=== PATIENT | male | born 1940 | race Caucasian/White ===

== ENCOUNTER 2018-12-18 15:52 | Inpatient (IN) | payer MEDICARE, OTHER ==
[2018-12-18] MEDS ORDERED: CEFAZOLIN 2 Gram 2 GM/50 ML BAG IVPB ONE (16:35)
--- NOTE | 2018-12-18 16:41 | Emergency Department Record ---
History of Present Illness - General Chief complaint: Extremity Problem Stated complaint: CELLULITIS RT ARM Time Seen by Provider: 12/18/18 16:31 Source: Patient, Family Mode of Arrival: Ambulatory Limitations: No limitations - History of Present Illness Initial comments: 78 yo male presents with erythema and warmth to the right arm for one week. He was seen at a [facility] Wednesday. He was started on oral antibiotics. He is not improved. He does not have pain. Full ROM of the elbow and wrist. He has small scabs or scratches on the arm that could be a source. The swelling and redness or from the armpit to the hand. No other complaints. MD Complaint: Extremity swelling -: Week(s) (1) Location: Right History of Same: No Radiation: Distal Quality: Other (No significant pain) Consistency: Constant Improves with: Nothing Worsens with: Nothing Associated Symptoms: Denies other symptoms - Related Data Home Medications Medication Instructions Recorded Confirmed Last Taken Atorvastatin Calcium [Lipitor] 80 mg PO DAILY 12/18/18 12/18/18 Unknown Cholecalciferol (Vitamin D3) 3,000 unit PO DAILY 12/18/18 12/18/18 Unknown [Vitamin D3] Donepezil HCl [Aricept] 10 mg PO DAILY 12/18/18 12/18/18 Unknown Furosemide [Lasix] 40 mg PO DAILY 12/18/18 12/18/18 Unknown L.acidoph,Paracasei, B.lactis 1 each PO DAILY 12/18/18 12/18/18 Unknown [Probiotic] Lisinopril 2.5 mg PO DAILY 12/18/18 12/18/18 Unknown Metformin HCl 1,000 mg PO DAILY 12/18/18 12/18/18 Unknown Methimazole 5 mg PO DAILY 12/18/18 12/18/18 Unknown Metoprolol Tartrate 12.5 mg PO DAILY 12/18/18 12/18/18 Unknown Rivaroxaban [Xarelto] 15 mg PO DAILY 12/18/18 12/18/18 Unknown Saxagliptin HCl [Onglyza] 5 mg PO DAILY 12/18/18 12/18/18 Unknown Selenium 200 mcg PO DAILY 12/18/18 12/18/18 Unknown Sertraline HCl [Zoloft] 100 mg PO DAILY 12/18/18 12/18/18 Unknown Spironolactone 25 mg PO DAILY 12/18/18 12/18/18 Unknown Tamsulosin HCl [Flomax] 0.4 mg PO DAILY 12/18/18 12/18/18 Unknown Allergies Allergy/AdvReac Type Severity Reaction Status Date / Time Iodinated Contrast Media Allergy PT UNSURE Verified 12/18/18 17:08 OF REACTION Review of Systems Constitutional: Denies: Chills, Fever, Malaise, Weakness Eyes: Denies: Eye discharge ENT: Denies: Congestion Respiratory: Denies: Dyspnea, Wheezes Cardiovascular: Denies: Chest pain, Syncope Endocrine: Denies: Fatigue, Polydipsia, Polyuria Gastrointestinal: Denies: Abdominal pain, Diarrhea, Nausea, Vomiting Genitourinary: Denies: Dysuria, Frequency, Hematuria Musculoskeletal: Reports: Joint swelling. Denies: Arthralgia, Back pain, Myalgia Skin: Reports: As per HPI, Change in color Neurological: Denies: Headache Psychiatric: Denies: Anxiety Hematological/Lymphatic: Denies: Easy bleeding, Easy bruising Physical Exam - General General Appearance: Alert, Oriented x3, Cooperative, No acute distress Limitations: No limitations - Head Head exam: Atraumatic - Eye Eye exam: Normal appearance. negative: Conjunctival injection - ENT ENT exam: Normal exam Ear exam: Normal external inspection Nasal Exam: Normal inspection Mouth exam: Normal external inspection - Neck Neck exam: Normal inspection - Respiratory Respiratory exam: Normal lung sounds bilaterally. negative: Respiratory distress - Cardiovascular Cardiovascular Exam: Regular rate, Normal rhythm, Normal heart sounds - GI/Abdominal GI/Abdominal exam: Soft. negative: Tenderness - Rectal Rectal exam: Deferred - exam: Deferred - Extremities Extremities exam: Full ROM, Joint swelling, Normal capillary refill. negative: Normal inspection, Calf tenderness, Pedal edema Image of Full Body: 1 - diffuse soft swelling of the RUE with warmth and erythema full ROM at the shoulder, elbow, and wrist - Neurological Neurological exam: Alert, Oriented X3 - Skin Skin exam: Erythema Course - Reevaluation(s) Reevaluation #1: 12/18/18 17:18 The CBC was reviewed WBC is 10 12/18/18 17:58 The CMP was reviewed Glucose is 383 12/18/18 17:58 I recommend IV antibiotics with admission for the RUE cellulitis The case was discussed with Tip Willett [employer] She accepts the patient for admission for IV antibiotics for the RUE cellulitis Medical Decision Making - Lab Data Result diagrams: 12/18/18 17:08 12/18/18 17:08 Disposition Disposition: Admit Clinical Impression: Cellulitis Qualifiers: Site of cellulitis: extremity Site of cellulitis of extremity: upper extremity Laterality: right Qualified Code(s): L03.113 - Cellulitis of right upper limb Disposition: Still a Patient at [facility] Decision to Admit: Admit from ER Decision to Admit Date: 12/18/18 Decision to Admit Time: 17:57 Condition: (1) Good Time of Disposition: 17:57 Quality - Quality Measures Quality Measures: N/A - Blood Pressure Screening Does Patient Have Any of the Following: Active Dx of HTN Blood Pressure Classification: Pre-Hypertensive BP Reading Systolic Measurement: 130 Diastolic Measurement: 74 Screening for High Blood Pressure: Patient Exclusion, Hx of HTN [[id number]]
[2018-12-18] MEDS ORDERED: VANCOMYCIN 1GM/200ML PREMIX 1 GM/200 ML PIGGYBACK IVPB SCH ×2 (16:45→18:42)
[2018-12-18 17:15] LABS: ABSOLUTE NEUTROPHIL COUNT 8.25; BASO % 0.4 % (0-6); EOS % 1.1 % (0-6); GRAN % 78.8 % (47-80); HEMATOCRIT 45.1 % (42.0-52.0); LYMPH % 11.8 % (16-45); MEAN CELL VOLUME 86.2 fl (81-97); MEAN CORPUSCULAR HEMOGLOBIN 28.7 pg (27-33); MEAN CORPUSCULAR HGB CONC 33.3 g/dl (32-36); MONO % 7.9 % (0-9); PLATELET COUNT 394 K/uL (130-400); RED BLOOD COUNT 5.23 M/uL (4.40-5.70); RED CELL DISTRIBUTION WIDTH 15.5 % (11.5-14.5); WHITE BLOOD COUNT W/O DIFF 10.5 K/uL (4.2-12.2)
[2018-12-18 17:30] LABS: BLOOD UREA NITROGEN 7 mg/dL (8-23); CREATININE 0.7 mg/dL (0.7-1.2); EST GLOMERULAR FILTRATION RATE > 60 mL/min
[2018-12-18 17:31] LABS: TOTAL PROTEIN 6.2 g/dL (6.6-8.7)
[2018-12-18 17:33] LABS: GLUCOSE,RANDOM 383 mg/dL (74-109)
[2018-12-18 17:35] LABS: ALT/SGPT 12 U/L (<41); AST/SGOT 13 U/L (10.0-50.0)
[2018-12-18 17:36] LABS: ALBUMIN 3.1 g/dL (4.0-5.0); ALKALINE PHOSPHATASE 110 U/L (40-129)
[2018-12-18] MEDS ORDERED: CEFAZOLIN 1 Gram 1 GM/50 ML BAG IVPB SCH (18:42)
[2018-12-18] MEDS ORDERED: ACETAMINOPHEN 325 MG TAB PO PRN (18:42)
[2018-12-18] MEDS: CEFAZOLIN 1 Gram 1 GM/50 ML BAG IVPB SCH (21:46)
[2018-12-19] MEDS: CEFAZOLIN 1 Gram 1 GM/50 ML BAG IVPB SCH ×3 (06:07→21:11)
[2018-12-19] MEDS ORDERED: SAXAGLIPTIN HCL 5 MG PO SCH (10:00)
[2018-12-19] MEDS ORDERED: METHIMAZOLE 5 MG PO SCH (10:00)
[2018-12-19] MEDS: FUROSEMIDE 40 MG TABLET PO SCH (10:13)
[2018-12-19] MEDS: SERTRALINE HCL 50 MG TABLET PO SCH (10:13)
[2018-12-19] MEDS: METOPROLOL TART 25 MG TABLET PO SCH (10:13)
[2018-12-19] MEDS: LISINOPRIL 5 MG TABLET PO SCH (10:13)
[2018-12-19] MEDS: RIVAROXABAN 15 MG TABLET PO SCH (10:13)
[2018-12-19] MEDS: DONEPEZIL HCL 5 MG TABLET PO SCH (10:14)
[2018-12-19] MEDS: ATORVASTATIN 20 MG TABLET PO SCH (10:14)
[2018-12-19] MEDS: METFORMIN 500 MG TABLET PO SCH (10:14)
[2018-12-19] MEDS: TAMSULOSIN HCL 0.4 MG CAP.ER.24H PO SCH (10:14)
--- NOTE | 2018-12-19 10:14 | History & Physical ---
History of Present Illness - Date of Service Date of Service for History & Physical: 12/19/18 - History of Present Illness Admitting Diagnosis: cellulitis History of Present Illness: Edmund Andre is a 78 y.o M who was brought in to the [facility] ED on 12/18/18 by his family d/t erythema warmth to the right arm x 1 week. He was seen in a [facility] on Wednesday and was started on Oral antibiotics. Family reports he has not shown any improvement. Erythema and swelling from armpit to the hand with small scabbed areas to the arm. Pt is a poor historian. Based on medication list, it appears that pt has HTN, Dementia, DM II and urine retention. He follows with a [place] physician for primary care. ED Course -Vitals: T 98.5, HR 77, BP 160/74, RR 16, SPO2 95% RA -WBC 10.5, Na 133, K+ 4. 8, Creatinine 0.7, eGFR >60, Glucose 383 -Vanco 1gm IV x 1 in ED, Cefazolin 1gm IV x. 8 hours started 12/19/18 0930 Vitals: T 98.1, HR 91, BP 134/68, RR 16, SP02 94% on RA Pt is lying in bed. He is alert and oriented to himself and seems disinterested in answering questions. He stated that he had been in the hospital for 4 days already and wasn't sure how long his arm had been red and swollen. At one point, he had to look at his arm to even recognize that it was red and swollen. He reported that he lives alone. Admited to smoking 1 pk/day for 60 years. However family reported that he smokes 2-3 packs/day. Stated that he has been taking his meds as prescribed except he refuses insulin. Staff reported that he has eaten everything that has been put in front of him and asks for more after he is done. Case management reported that she met with his family and that he has had some amount of neuropsychological testing done within the past year but couldn't c omplete it d/t his refusal. Family reported that his dementia seems to be worsening. Travel Screening - Travel/Exposure Within Last 30 Days Have you traveled within the last 30 days?: No - Travel/Exposure Within Last Year Have you traveled outside the [place] in the last year?: No - Additonal Travel Details Have you been exposed to anyone with a communicable illness?: No - Travel Symptoms Symptom Screening: None Review of Systems Reviewed: No additional complaints except as noted below Constitutional: Denies: Chills, Fever, Malaise, Weakness Eyes: Denies: Eye discharge Endocrine: Denies: Polydipsia, Polyuria Gastrointestinal: Denies: Abdominal pain, Diarrhea, Nausea, Vomiting Musculoskeletal: Denies: Arthralgia, Back pain, Myalgia Skin: Reports: As per HPI, Change in color Neurological: Denies: Headache Psychiatric: Denies: Anxiety Past Medical History - SOCIAL HISTORY Smoking Status: Current every day smoker Alcohol Use: None Drug Use: None - RESPIRATORY Hx Respiratory Disorders: No - CARDIOVASCULAR Hx Cardio Disorders: Yes Hx Heart Attack: Yes (2015) - NEURO Hx Neuro Disorders: Yes Hx Dementia: Yes - GI Hx GI Disorders: No - Hx Genitourinary Disorders: Yes Hx Prostate Problems: Yes - ENDOCRINE Hx Endocrine Disorders: Yes Hx Diabetes: Yes - MUSCULOSKELETAL Hx Musculoskeletal Disorders: Yes - PSYCH Hx Psych Problems: Yes Hx Anxiety: Yes Hx Depression: Yes - HEMATOLOGY/ONCOLOGY Hx Hematology/Oncology Disorders: No Family Medical History Any Significant Family History?: Yes Hx Anxiety: Brother/Sister Hx Dementia: Mother Hx Diabetes: Father Hx Resp Disorders: Father, Mother H&P Meds/Allergies - Allergies Allergies: Allergies Allergy/AdvReac Type Severity Reaction Status Date / Time Iodinated Contrast Media Allergy PT UNSURE Verified 12/18/18 17:08 OF REACTION - Home Medications Home Medications Medication Instructions Recorded Confirmed Last Taken Atorvastatin Calcium [Lipitor] 80 mg PO DAILY 12/18/18 12/18/18 Unknown Cholecalciferol (Vitamin D3) 3,000 unit PO DAILY 12/18/18 12/18/18 Unknown [Vitamin D3] Donepezil HCl [Aricept] 10 mg PO DAILY 12/18/18 12/18/18 Unknown Furosemide [Lasix] 40 mg PO DAILY 12/18/18 12/18/18 Unknown L.acidoph,Paracasei, B.lactis 1 each PO DAILY 12/18/18 12/18/18 Unknown [Probiotic] Lisinopril 2.5 mg PO DAILY 12/18/18 12/18/18 Unknown Metformin HCl 1,000 mg PO DAILY 12/18/18 12/18/18 Unknown Methimazole 5 mg PO DAILY 12/18/18 12/18/18 Unknown Metoprolol Tartrate 12.5 mg PO DAILY 12/18/18 12/18/18 Unknown Rivaroxaban [Xarelto] 15 mg PO DAILY 12/18/18 12/18/18 Unknown Saxagliptin HCl [Onglyza] 5 mg PO DAILY 12/18/18 12/18/18 Unknown Selenium 200 mcg PO DAILY 12/18/18 12/18/18 Unknown Sertraline HCl [Zoloft] 100 mg PO DAILY 12/18/18 12/18/18 Unknown Spironolactone 25 mg PO DAILY 12/18/18 12/18/18 Unknown Tamsulosin HCl [Flomax] 0.4 mg PO DAILY 12/18/18 12/18/18 Unknown - Active Medications Active Medications: Current Medications Acetaminophen (Tylenol 325mg) 650 mg PO Q6H PRN PRN Reason: PAIN - MILD(1-4)/FEVER Atorvastatin Calcium (Lipitor) 80 mg PO DAILY [facility] Donepezil HCl (Aricept) 10 mg PO DAILY [facility] Furosemide (Lasix) 40 mg PO DAILY [facility] Cefazolin Sodium (Kefzol) 1 gm in 50 mls @ 100 mls/hr IVPB Q8HR JULIA Stop: 12/23/18 18:43 Last Infusion: 12/19/18 06:53 Dose: Infused Documented by: Lisinopril (Zestril) 2.5 mg PO DAILY [facility] Metformin HCl (Glucophage Ir) 1,000 mg PO DAILY [facility] Metoprolol Tartrate (Lopressor) 12.5 mg PO DAILY [facility] Non-Formulary Medication (Methimazole [Methimazole]) 5 mg PO DAILY [facility] Non-Formulary Medication (Saxagliptin Hcl [Onglyza]) 5 mg PO DAILY [facility] Rivaroxaban (Xarelto) 15 mg PO DAILY JULIA Sertraline HCl (Zoloft) 100 mg PO DAILY JULIA Spironolactone (Aldactone) 25 mg PO DAILY [facility] Tamsulosin HCl (Flomax) 0.4 mg PO DAILY [facility] Physical Exam - Vital Signs Vital Signs: Vital Signs - Last 24 Hrs Temp Pulse Pulse Resp BP BP Pulse Ox 12/19/18 08:30 98.1 F 91 H 16 134/68 94 L 12/19/18 07:57 70 12/18/18 23:24 97.9 F 87 18 159/80 97 12/18/18 21:00 70 16 12/18/18 18:22 97.7 F 77 16 160/74 98 12/18/18 18:21 98.5 F 74 16 130/74 95 12/18/18 16:36 98.5 F 74 16 130/74 95 - General General Appearance: Alert, No acute distress, Other (unkempt) Limitations: No limitations - Head Head exam: Atraumatic - Eye Eye exam: Normal appearance. negative: Conjunctival injection - ENT ENT exam: Normal exam Ear exam: Normal external inspection Nasal Exam: Normal inspection Mouth exam: Normal external inspection - Neck Neck exam: Normal inspection - Respiratory Respiratory exam: Decreased breath sounds. negative: Respiratory distress - Cardiovascular Cardiovascular Exam: Regular rate, Normal rhythm, Normal heart sounds - GI/Abdominal GI/Abdominal exam: Soft. negative: Tenderness - Rectal Rectal exam: Deferred - exam: Deferred - Extremities Extremities exam: Normal capillary refill. negative: Normal inspection, Calf tenderness, Pedal edema - Neurological Neurological exam: Alert, Oriented X3 - Psychiatric Psychiatric exam: Agitated - Skin Skin exam: Erythema (Erythema from shoulder to finger tip on right arm, swelling, scabbed areas to arm), Other Results - Labs Result Diagrams: 12/18/18 17:08 12/19/18 17:15 Labs Last 24 Hours: Laboratory Results - last 24 hr 12/18/18 12/18/18 17:08 17:08 WBC 10.5 RBC 5.23 Hgb 15.0 Hct 45.1 MCV 86.2 MCH 28.7 MCHC 33.3 RDW 15.5 H Plt Count 394 MPV 9.0 Gran % 78.8 Lymphocytes % 11.8 L Monocytes % 7.9 Eosinophils % 1.1 Basophils % 0.4 Absolute Neutrophils 8.25 Sodium 133 L Potassium 4.8 H Chloride 98 Carbon Dioxide 26.0 Anion Gap 9.0 BUN 7 L Creatinine 0.7 Estimated GFR > 60 Random Glucose 383 H Calcium 8.9 Total Bilirubin 0.70 AST 13 ALT 12 Alkaline Phosphatase 110 Total Protein 6.2 L Albumin 3.1 L Globulin 3.1 Albumin/Globulin Ratio 1.0 L VTE H&P Assessment - Risk for VTE Risk for VTE: Yes Risk Level: High Risk Assessment Date: 12/19/18 Risk Assessment Time: 10:00 VTE Orders Placed or Will Be Placed: Yes Plan - Inpatient Certification Inpatient Certification: Admit to inpatient care: Based on my medical assessment, after consideration of patient's risk factors (age, co-morbidities and patient presenting symptoms and acuity), I expect that this patient will remain in the hospital greater than or equal to two midnights and that the services needed warrant inpatient care because: Patient Risk Factors: [Age, co-morbidities] Estimated length of stay: [48-72 hours] The patient may reasonably be expected to be discharged or transferred to a hospital within 96 hours after admission to [facility]. Services needed: [IV Therapy, PT/OT] Post hospital care (if known): [home with [facility]] I certify that my determination is in accordance with my understanding of Medicare requirements for reasonable and necessary inpatient services. 12/19/18 22:08 - Detailed Diagnosis and Plan (1) Diabetes mellitus type II, uncontrolled Current Visit: Yes Status: Acute Base Code: E11.65 - TYPE 2 DIABETES MELLITUS WITH HYPERGLYCEMIA Comment: 12/19/18 -Blood Glucose 383 in ED -Refuses to give himself insulin at home -Continue Metformin 1000mg PO BID and Onglyza 5mg po daily -Sliding Scale insulin - moderate scale ordered (2) Cellulitis Current Visit: Yes Status: Acute Qualifiers: Site of cellulitis: extremity Site of cellulitis of extremity: upper extremity Laterality: right Qualified Code(s): L03.113 - Cellulitis of right upper limb Base Code: L03.90 - CELLULITIS, UNSPECIFIED Comment: 12/19/18 -RUE swelling and erythema from shoulder to fingers, scabbed areas noted which could be source -Vanco 1gm IV x 1 in the ED -Continue Vanco IV, pharmacy to dose -Cefazolin 1gm IV q. 8 hours -Venous Dopplar of RUE ordered to r/o DVT (3) Dementia Current Visit: Yes Status: Acute Base Code: F03.90 - UNSPECIFIED DEMENTIA WITHOUT BEHAVIORAL DISTURBANCE Comment: 12/19/18 -Takes Aricept 10mg daily -Currently A&Ox1 but difficult to assess as pt does not participate well with questioning -Case Management consulted and working with family on social issues (4) DVT prophylaxis Current Visit: Yes Status: Acute Base Code: Z29.9 - ENCOUNTER FOR PROPHYLACTIC MEASURES, UNSPECIFIED Comment: 12/19/18 -Continue Xarelto 15mg daily (home dose) (5) Full code status Current Visit: Yes Status: Acute Base Code: Z78.9 - OTHER SPECIFIED HEALTH STATUS Comment: 12/19/18 -Full code this admission
[2018-12-19] MEDS: SPIRONOLACTONE 25 MG TAB PO SCH (10:17)
[2018-12-19] MEDS ORDERED: VANCOMYCIN 1GM/200ML PREMIX 1 GM/200 ML PIGGYBACK IVPB SCH (10:30)
[2018-12-19] MEDS: VANCOMYCIN 1.5GM/300ML PREMIX 1.5 GM/300 ML PIGGYBACK IVPB SCH ×2 (10:35→22:17)
[2018-12-19] MEDS ORDERED: LORAZEPAM 2 MG/ML VIAL IV PRN (10:49)
[2018-12-19] MEDS: NOVOLOG FLEXPEN (INSULIN ASPART) 100 UNITS/ML SQ SCH ×2 (13:28→18:17)
[2018-12-19] MEDS: NICOTINE 21 MG/24 HOUR PATCH TD SCH (17:35)
[2018-12-19] MEDS ORDERED: NOVOLOG FLEXPEN (INSULIN ASPART) 100 UNITS/ML SQ ONE (19:30)
[2018-12-19] MEDS: LORAZEPAM 2 MG/ML VIAL IV PRN (21:07)
[2018-12-20] MEDS: CEFAZOLIN 1 Gram 1 GM/50 ML BAG IVPB SCH ×3 (05:35→21:10)
--- NOTE | 2018-12-20 05:55 | US VENOUS DOPPLER REPORT ---
EXAM: ULTRASOUND VENOUS DOPPLER UPPER EXT RT HISTORY: RIGHT UPPER EXTREMITY EDEMA. TECHNIQUE: Price-scale, color Doppler, and duplex Doppler examination of the deep venous structures of the right upper extremity performed including the right internal jugular vein, subclavian vein down to the forearm veins though evaluation of the ulnar aspect of the forearm could not be performed due to patient compliance. COMPARISON: None. FINDINGS: The right internal jugular vein is anechoic and completely compressible. Normal venous waveform is identified. The right subclavian, axillary, brachial, cephalic, basilic, and antecubital veins are anechoic and compressible throughout. Normal venous waveforms are identified. The radial veins are visualized and appear patent. Again, evaluation of the ulnar veins was not performed due to patient compliance. IMPRESSION: NO EVIDENCE OF DEEP VENOUS THROMBOSIS WITHIN THE RIGHT UPPER EXTREMITY THOUGH EVALUATION OF THE ULNAR VEINS WAS NOT PERFORMED DUE TO PATIENT COMPLIANCE. JOB NUMBER: [id number] MTDD
[2018-12-20 06:42] LABS: ABSOLUTE NEUTROPHIL COUNT 5.57; BASO % 0.4 % (0-6); GRAN % 67.5 % (47-80); HEMATOCRIT 35.2 % (42.0-52.0); HEMOGLOBIN 11.7 gm/dl (14.0-18.0); LYMPH % 22.3 % (16-45); MEAN CELL VOLUME 86.9 fl (81-97); MEAN CORPUSCULAR HGB CONC 33.2 g/dl (32-36); MEAN PLATELET VOLUME 8.9 fl (7.4-10.4); MONO % 6.8 % (0-9); PLATELET COUNT 357 K/uL (130-400); RED BLOOD COUNT 4.05 M/uL (4.40-5.70); WHITE BLOOD COUNT W/O DIFF 8.3 K/uL (4.2-12.2)
[2018-12-20 06:54] LABS: MEAN CORPUSCULAR HEMOGLOBIN 28.8 pg (27-33)
[2018-12-20 06:57] LABS: ALB/GLOB RATIO 1.2 (1.1-1.8); ALBUMIN 2.5 g/dL (4.0-5.0); ALKALINE PHOSPHATASE 79 U/L (40-129); ALT/SGPT 6 U/L (<41); AST/SGOT 10 U/L (10.0-50.0); BLOOD UREA NITROGEN 9 mg/dL (8-23); CREATININE 0.8 mg/dL (0.7-1.2); EST GLOMERULAR FILTRATION RATE > 60 mL/min; GLUCOSE,RANDOM 207 mg/dL (74-109); TOTAL PROTEIN 4.6 g/dL (6.6-8.7)
[2018-12-20] MEDS: NOVOLOG FLEXPEN (INSULIN ASPART) 100 UNITS/ML SQ SCH ×5 (09:07→18:20)
[2018-12-20] MEDS: DONEPEZIL HCL 5 MG TABLET PO SCH (10:35)
[2018-12-20] MEDS: METFORMIN 500 MG TABLET PO SCH (10:35)
[2018-12-20] MEDS: METOPROLOL TART 25 MG TABLET PO SCH (10:36)
[2018-12-20] MEDS: SERTRALINE HCL 50 MG TABLET PO SCH (10:36)
[2018-12-20] MEDS: NICOTINE 21 MG/24 HOUR PATCH TD SCH (10:36)
[2018-12-20] MEDS: LISINOPRIL 5 MG TABLET PO SCH (10:37)
[2018-12-20] MEDS: SPIRONOLACTONE 25 MG TAB PO SCH (10:37)
[2018-12-20] MEDS: RIVAROXABAN 15 MG TABLET PO SCH (10:37)
[2018-12-20] MEDS: FUROSEMIDE 40 MG TABLET PO SCH (10:37)
[2018-12-20] MEDS: ATORVASTATIN 20 MG TABLET PO SCH (10:38)
[2018-12-20] MEDS: TAMSULOSIN HCL 0.4 MG CAP.ER.24H PO SCH (10:38)
[2018-12-20] MEDS: VANCOMYCIN 1.5GM/300ML PREMIX 1.5 GM/300 ML PIGGYBACK IVPB SCH (10:39)
[2018-12-20] MEDS: LORAZEPAM 2 MG/ML VIAL IV PRN (17:14)
[2018-12-20] MEDS ORDERED: LEVEMIR FLEXTOUCH 100 UNIT/ML INSULIN PEN SQ ONE (18:13)
[2018-12-20] MEDS ORDERED: LORAZEPAM 2 MG/ML VIAL IV PRN (18:26)
[2018-12-20] MEDS ORDERED: LEVEMIR FLEXTOUCH 100 UNIT/ML INSULIN PEN SQ SCH (22:00)
[2018-12-20] MEDS: THIAMINE MONONITRATE 100 MG TABLET PO SCH (23:37)
[2018-12-21] MEDS ORDERED: NOVOLOG FLEXPEN (INSULIN ASPART) 100 UNITS/ML SQ ONE (00:01)
[2018-12-21] MEDS: VANCOMYCIN 1.5GM/300ML PREMIX 1.5 GM/300 ML PIGGYBACK IVPB SCH ×3 (00:15→22:52)
[2018-12-21] MEDS: CEFAZOLIN 1 Gram 1 GM/50 ML BAG IVPB SCH ×3 (05:08→21:56)
[2018-12-21] MEDS: NOVOLOG FLEXPEN (INSULIN ASPART) 100 UNITS/ML SQ SCH ×3 (07:44→17:17)
[2018-12-21] MEDS: METFORMIN 500 MG TABLET PO SCH (09:17)
[2018-12-21] MEDS: SERTRALINE HCL 50 MG TABLET PO SCH (09:17)
[2018-12-21] MEDS: TAMSULOSIN HCL 0.4 MG CAP.ER.24H PO SCH (09:17)
[2018-12-21] MEDS: THIAMINE MONONITRATE 100 MG TABLET PO SCH (09:17)
[2018-12-21] MEDS: LISINOPRIL 5 MG TABLET PO SCH (09:18)
[2018-12-21] MEDS: RIVAROXABAN 15 MG TABLET PO SCH (09:18)
[2018-12-21] MEDS: DONEPEZIL HCL 5 MG TABLET PO SCH (09:18)
[2018-12-21] MEDS: ATORVASTATIN 20 MG TABLET PO SCH (09:19)
[2018-12-21] MEDS: METOPROLOL TART 25 MG TABLET PO SCH (09:19)
[2018-12-21] MEDS: FUROSEMIDE 40 MG TABLET PO SCH (09:19)
[2018-12-21] MEDS: NICOTINE 21 MG/24 HOUR PATCH TD SCH (09:20)
[2018-12-21] MEDS: SPIRONOLACTONE 25 MG TAB PO SCH (09:23)
[2018-12-21] MEDS: LEVEMIR FLEXTOUCH 100 UNIT/ML INSULIN PEN SQ SCH ×2 (09:24→21:57)
--- NOTE | 2018-12-21 13:41 | Rehab Evaluation ---
Patient Information - Patient Information Diagnosis: cellulitis Ordered Treatment: PT Evaluate and Treat Status: Initial Evaluation Past Medical/Surgical Hx: PAST MEDICAL/SURGICAL HISTORY Past Surgical History back surgery left rotator cuff gallbladder appy PMH - Respiratory Hx Respiratory Disorders No PMH - Cardiovascular Hx Cardiovascular Disorders Yes Hx Heart Attack Yes: 2016 PMH - Neuro Hx Neurological Disorders Yes Hx Dementia Yes PMH - GI Hx Gastrointestinal Disorders No PMH - Hx Genitourinary Disorders Yes Hx Prostate Problems Yes PMH - Endocrine Hx Endocrine Disorders Yes Hx Diabetes Yes PMH - Musculoskeletal Hx Musculoskeletal Disorders Yes PMH - Psych Hx Psychiatric Problems Yes Hx Anxiety Yes Hx Depression Yes PMH - Hematology/Oncology Hx Hematology/Oncology No Disorders Premorbid Status: Detail (The patient refused to relate history/living situation however patient's son and his were present and presented premorbid status and social history. According to family: The patient ambulated with a 3 wheeled walker and used a standard cane when ambulating into bathroom due to small doorway of bathroom that did not accomodate a walker. The patient had someone present daily either an aide(3 hours, 3 days a week) or his daughter. The patiemt was independent with ADL's per son's report.) Social History: Detail (Per son's report the patient lives in a one story house with a ramp at one enterance and 3 steps at the other enterance. The bathroom is equipped with: a tub/shower combination,hand held shower, two tub chairs one inside the tub and the other outside the tub, a toilet with a riser seat. The patient has a three wheeled walker and cane.) Precautions: [place], Fall - Time With Patient Total Time Spent With Patient (Min): 20 Treatment Procedures: Detail (Initial evaluation.) Subjective Information - Subjective Information Per Patient (The patient was minimally co-operative with eval, perserverating on getting out of the hospital. The patient mocked and swore at PT and OT several times.) Objective Data - Mental Status Patient Orientation: Person (The patient knew his birthday and place. The patient followed simple commands.) - ROM Within normal limits (LE AROM was WNL) - Strength/Tone Other (LE strength testing was not completed secondary to lack of cooperation however was functional (pt. was able to acheive sit to stand and ambulate).) - Bed Mobility Independent (Not formally assessed however independent per nursing staff.) - Transfers Independent (Sit to and from stand transfer was independent.) - Balance Balance Sitting: Good Balance Standing: Fair (The patient required support of 3 wheeled walker for ambulation.) - Gait Detail (The patient ambulated with 3 wheeled walker independently/assistance to handle IV only 45 feet x 1. The patient's gait pattern was characterized by increased trunk and neck flexion and walker placed too far ahead at times.) Therapy Assessment - Therapy Assessment Detail (The patient was independent with transfers and ambulation and exhibits functional strength to complete mobility. Patient was uncooperative and performed minimally for evaluation. The patient is not a rehab candidate at this time due to independence with mobility . Also feel the patient would not participate in a Rehab setting.) Problem List - Problem List Physical Therapy Problem List: Detail (1)Cognitive status, agitation, noncooperative.) Goals - Goals Physical Therapy Goals: No PT goals are identified at this time. Pt. is independent with mobility. Plan - Plan Physical Therapy Plan: No ongoing PT is recommended at this time.
--- NOTE | 2018-12-21 14:33 | Rehab Evaluation ---
Patient Information - Patient Information Diagnosis: cellulitis Ordered Treatment: OT Evaluate and Treat Status: Initial Evaluation Surgery: No Past Med/Harris Hx Detail: Detail (Dementia, HTN, RUE Doppler: negative acute for DVT however ulnar veins NT d/t Pt non-compliance.) Past Medical/Surgical Hx: PAST MEDICAL/SURGICAL HISTORY Past Surgical History back surgery left rotator cuff gallbladder appy PMH - Respiratory Hx Respiratory Disorders No PMH - Cardiovascular Hx Cardiovascular Disorders Yes Hx Heart Attack Yes: 2015 PMH - Neuro Hx Neurological Disorders Yes Hx Dementia Yes PMH - GI Hx Gastrointestinal Disorders No PMH - Hx Genitourinary Disorders Yes Hx Prostate Problems Yes PMH - Endocrine Hx Endocrine Disorders Yes Hx Diabetes Yes PMH - Musculoskeletal Hx Musculoskeletal Disorders Yes PMH - Psych Hx Psychiatric Problems Yes Hx Anxiety Yes Hx Depression Yes PMH - Hematology/Oncology Hx Hematology/Oncology No Disorders Premorbid Status: Detail (The patient refused to relate history/living situation however patient's son and [id number] were present and relayed premorbid status and social history. According to family: The patient ambulated with a 3 wheeled walker and used a standard cane when ambulating into bathroom due to small doorway of bathroom that did not accomodate a walker. The patient had someone present daily, either an aide (3 days a week), his sister, or his daughter. The son reports he often went several days in the same clothes. The patient was independent with all ADL's per son report.) Social History: Detail (Per son's report, the patient lives in a one story house with a ramp at one entrance and 3 steps at the other entrance. The bathroom is equipped with a tub/shower combination, hand-held shower, two tub chairs - one inside the tub and the other outside the tub, and a highly elevated toilet seat. The patient has a three wheeled walker and cane.) Precautions: Beryl, Fall - Time With Patient Total Time Spent With Patient (Min): 25 (1 eval) Treatment Procedures: Detail (1 OT eval: low complexity) Subjective Information - Subjective Information Per Patient (Ok to see per RN Artem, Pt uncooperative and unmotivated throughout Tx, making derogatory remarks about therapists, family, and POC.) Objective Data - Pain Pain Present: No - Mental Status Patient Orientation: Person (Pt reports his full name and birthday, however declines any further information.) - Visual Perception Appears within normal limits for therapeutic activities - ROM Not within normal limits (LUE WNL; R UE complicated rotator cuff repair with residual deficits shld abduction and flexion ~80*, otherwise WNL.) - Strength/Tone Other (MMT not tested d/t Pt non-compliance. Entire R UE notably red and swollen.) - Coordination Appears within normal limits for therapeutic activities - Transfers Independent (Sit to/from stand to 3WW) - Balance Balance Sitting: Good Balance Standing: Fair (Fair-, with walker support, no safety concerns.) - Sensation Intact (NT d/t non-compliance) - Gait Detail (Functional mobility within bedroom with 3ww, no safety concerns.) - ADL's/IADL's Detail (Pt demos physical abilities (FMC, ROM, strength, etc.) to complete all ADLs and functional TFs, however not formally tested d/t Pt non-compliance.) - Special Tests No Therapy Assessment - Therapy Assessment Detail (Pt uncooperative and unmotivated throughout eval. Demos physical abilities to complete all ADLs and functional mobility, however not formally tested d/t Pt non-compliance. Pt's family reports decreased hygiene/cleanliness at home, however Pt will likely continue non-compliance in any setting (rehab, usp, home), and may benefit from home setting where Pt will likely be most mobile in order to prevent deconditioning d/t non-compliance in an outside setting. No further IP OT needs identified.) Problem List - Problem List Physical Therapy Problem List: Detail (1)Cognitive status, agitation, noncooperative.) Occupational Therapy Problem List: Detail (Pt likely independent all ADLs and functional TFs, limited by non-compliance and aggression.) Goals - Goals Physical Therapy Goals: No PT goals are identified at this time. Pt. is independent with mobility. Occupational Therapy Goals: No further IP OT needs/goals. Pt likely independent all ADLs/functional mobility, however non-compliant with testing and will not co operate with therapy regardless. Prognosis - Prognosis Moderate (Pt appears safe for home DC with continued family and aide assist. Non-cooperative with therapy, thus no further progress will be made.) Plan - Plan Physical Therapy Plan: No ongoing PT is recommended at this time. Occupational Therapy Plan: No further skilled IP OT needs/goals identified. DC IP OT. Thank you for this referral.
[2018-12-22] MEDS: CEFAZOLIN 1 Gram 1 GM/50 ML BAG IVPB SCH ×3 (06:23→21:50)
[2018-12-22 06:48] LABS: BLOOD UREA NITROGEN 15 mg/dL (8-23); CREATININE 0.9 mg/dL (0.7-1.2); EST GLOMERULAR FILTRATION RATE > 60 mL/min; GLUCOSE,RANDOM 128 mg/dL (74-109)
--- NOTE | 2018-12-22 07:18 | RADIOLOGY REPORT ---
EXAM: PORTABLE CHEST HISTORY: [facility]ECARE PLACEMENT. TECHNIQUE: A single mobile upright view of the chest was obtained. Comparison: None. FINDINGS: The heart is at the upper limits of normal in size. No pulmonary venous hypertension is seen. The thoracic aorta is mildly atherosclerotic and tortuous. No confluent air space opacity is demonstrated nor is there costophrenic angle blunting or pneumothorax. The lung volumes are low. There are mild to moderate degenerative changes scattered within the visualized spine and shoulder girdles. IMPRESSION: LOW LUNG VOLUMES. NO EVIDENCE OF ACUTE CARDIOPULMONARY DISEASE. JOB NUMBER: [id number] MTDD
[2018-12-22] MEDS: DONEPEZIL HCL 5 MG TABLET PO SCH (09:47)
[2018-12-22] MEDS: METFORMIN 500 MG TABLET PO SCH (09:47)
[2018-12-22] MEDS: METOPROLOL TART 25 MG TABLET PO SCH (09:47)
[2018-12-22] MEDS: THIAMINE MONONITRATE 100 MG TABLET PO SCH (09:48)
[2018-12-22] MEDS: ATORVASTATIN 20 MG TABLET PO SCH (09:48)
[2018-12-22] MEDS: TAMSULOSIN HCL 0.4 MG CAP.ER.24H PO SCH (09:48)
[2018-12-22] MEDS: NICOTINE 21 MG/24 HOUR PATCH TD SCH (09:48)
[2018-12-22] MEDS: RIVAROXABAN 15 MG TABLET PO SCH (09:48)
[2018-12-22] MEDS: SERTRALINE HCL 50 MG TABLET PO SCH (09:49)
[2018-12-22] MEDS: FUROSEMIDE 40 MG TABLET PO SCH (09:49)
[2018-12-22] MEDS: SPIRONOLACTONE 25 MG TAB PO SCH (09:49)
[2018-12-22] MEDS: NOVOLOG FLEXPEN (INSULIN ASPART) 100 UNITS/ML SQ SCH ×3 (09:56→18:24)
[2018-12-22] MEDS: LEVEMIR FLEXTOUCH 100 UNIT/ML INSULIN PEN SQ SCH (09:57)
[2018-12-22] MEDS ORDERED: THIAMINE MONONITRATE 100 MG TABLET PO SCH (10:15)
[2018-12-22] MEDS: VANCOMYCIN 1.5GM/300ML PREMIX 1.5 GM/300 ML PIGGYBACK IVPB SCH ×2 (10:19→23:13)
[2018-12-22] MEDS: LISINOPRIL 5 MG TABLET PO SCH (10:30)
[2018-12-22] MEDS: LORAZEPAM 2 MG/ML VIAL IV PRN (20:07)
[2018-12-22] MEDS ORDERED: LEVEMIR FLEXTOUCH 100 UNIT/ML INSULIN PEN SQ SCH (22:00)
[2018-12-23] MEDS: LORAZEPAM 2 MG/ML VIAL IV PRN ×2 (00:44→05:52)
[2018-12-23] MEDS: CEFAZOLIN 1 Gram 1 GM/50 ML BAG IVPB SCH (05:52)
[2018-12-23] MEDS ORDERED: LEVEMIR FLEXTOUCH 100 UNIT/ML INSULIN PEN SQ ONE (08:05)
--- NOTE | 2018-12-23 08:36 | Discharge Note ---
VTE H&P Assessment - Risk for VTE Risk for VTE: Yes Risk Level: High Risk Assessment Date: 12/19/18 Risk Assessment Time: 10:00 VTE Orders Placed or Will Be Placed: Yes Discharge Medications - Discharge Medications Prescriptions: Sulfamethoxazole/Trimethoprim [Bactrim] 1 each PO BID #20 tab Cephalexin [Keflex] 500 mg PO QID #40 capsule Metoprolol Tartrate [Lopressor] 12.5 mg PO BID #60 tab Thiamine Mononitrate [Vitamin B-1] 100 mg PO DAILY #30 tablet Home Medications: Ambulatory Orders Atorvastatin Calcium [Lipitor] 80 mg PO DAILY 12/18/18 [Last Taken Unknown] Cholecalciferol (Vitamin D3) [Vitamin D3] 3,000 unit PO DAILY 12/18/18 [Last Taken Unknown] Donepezil HCl [Aricept] 10 mg PO DAILY 12/18/18 [Last Taken Unknown] Furosemide [Lasix] 40 mg PO DAILY 12/18/18 [Last Taken Unknown] L.acidoph,Paracasei, B.lactis [Probiotic] 1 each PO DAILY 12/18/18 [Last Taken Unknown] Lisinopril 2.5 mg PO DAILY 12/18/18 [Last Taken Unknown] Metformin HCl 1,000 mg PO DAILY 12/18/18 [Last Taken Unknown] Methimazole 5 mg PO DAILY 12/18/18 [Last Taken Unknown] Rivaroxaban [Xarelto] 15 mg PO DAILY 12/18/18 [Last Taken Unknown] Saxagliptin HCl [Onglyza] 5 mg PO DAILY 12/18/18 [Last Taken Unknown] Selenium 200 mcg PO DAILY 12/18/18 [Last Taken Unknown] Sertraline HCl [Zoloft] 100 mg PO DAILY 12/18/18 [Last Taken Unknown] Spironolactone 25 mg PO DAILY 12/18/18 [Last Taken Unknown] Tamsulosin HCl [Flomax] 0.4 mg PO DAILY 12/18/18 [Last Taken Unknown] Cephalexin [Keflex] 500 mg PO QID #40 capsule 12/23/18 [Last Taken Unknown] Metoprolol Tartrate [Lopressor] 12.5 mg PO BID #60 tab 12/23/18 [Last Taken Unknown] Sulfamethoxazole/Trimethoprim [Bactrim] 1 each PO BID #20 tab 12/23/18 [Last Taken Unknown] Thiamine Mononitrate [Vitamin B-1] 100 mg PO DAILY #30 tablet 12/23/18 [Last Taken Unknown] Discharge Note - Date Date of Discharge Note: 12/23/18 Disposition: Home Health Service Condition: (1) Good Additional Instructions: [facility] days bactrim twice a day for 10 days keflex four times a day for 10 days change lantus insulin to 40 units at night(only) starting Wednesday12/24/2018 check glucose twice aday fasting in AM and before dinner Forms: Patient Portal Access Activity at Discharge: Increase Activity as Tolerated (daughter is taking the patient home and will supervise his care and medications)
[2018-12-23] MEDS: NOVOLOG FLEXPEN (INSULIN ASPART) 100 UNITS/ML SQ SCH ×2 (08:45→14:35)
[2018-12-23] MEDS: CEPHALEXIN 500 MG CAPSULE PO SCH ×2 (09:29→14:49)
[2018-12-23] MEDS: TAMSULOSIN HCL 0.4 MG CAP.ER.24H PO SCH (09:29)
[2018-12-23] MEDS: FUROSEMIDE 40 MG TABLET PO SCH (09:30)
[2018-12-23] MEDS: SPIRONOLACTONE 25 MG TAB PO SCH (09:30)
[2018-12-23] MEDS: THIAMINE MONONITRATE 100 MG TABLET PO SCH (09:30)
[2018-12-23] MEDS: DONEPEZIL HCL 5 MG TABLET PO SCH (09:30)
[2018-12-23] MEDS: METFORMIN 500 MG TABLET PO SCH (09:30)
[2018-12-23] MEDS: LISINOPRIL 5 MG TABLET PO SCH (09:30)
[2018-12-23] MEDS: RIVAROXABAN 15 MG TABLET PO SCH (09:30)
[2018-12-23] MEDS: SERTRALINE HCL 50 MG TABLET PO SCH (09:31)
[2018-12-23] MEDS: ATORVASTATIN 20 MG TABLET PO SCH (09:31)
[2018-12-23] MEDS: NICOTINE 21 MG/24 HOUR PATCH TD SCH (09:31)
[2018-12-23] MEDS: METOPROLOL TART 25 MG TABLET PO SCH (09:37)
[2018-12-23] MEDS ORDERED: TMP/SMZ 160MG/800MG TAB PO SCH (10:00)
--- NOTE | 2018-12-23 13:01 | Discharge Summary ---
DATE: 12/23/2018 at 8:45 am. DISCHARGE DIAGNOSES: 1. Cellulitis of the right arm. 2. Diabetes mellitus type 2. 3. Dementia, Alzheimer's. 4. Hyperthyroidism and on methimazole 5 mg a day. 5. Coronary artery disease, stable. 6. Hypercholesterolemia. 7. Benign prostatic hyperplasia. 8. Hypertension. ATTENDING PHYSICIAN: Mike Solares DO REASON FOR HOSPITALIZATION: This 78-year-old male came to the emergency department with his daughter Shefali El. He was confused, decreased level of consciousness. He informed the ER that his right arm was swollen and warm for about 1 week prior to coming in. He was seen at [facility] on Wednesday, started on oral antibiotic but did not improve. He has some small scabs from scratching his arm possibly with sores, so the infection. He was evaluated by Dr. Cote and admitted to the hospital for cellulitis of the right arm, diabetes mellitus uncontrolled. Family states he is not using his Lantus insulin the way he is supposed to. He is supposed to take 10 units twice a day but he is not taking any shots of insulin. SIGNIFICANT FINDINGS: Laboratory: His sugars were as high as 642 during the hospitalization, were uncontrolled with short-acting insulin and started back up long-acting insulin and titrated him up to 25 mg twice a day but the daughter said once a day would be much better for her to give at night and so we are going to switch him to Lantus 40 units at night for controlling his sugar along with his oral medications. He had an EKG which showed sinus rhythm. No acute ST-T-wave changes. Chest x-ray with low lung volumes, no evidence of acute cardiopulmonary disease. He had a venous Doppler of the right extremity. No signs of a DVT. The last labs that were drawn, BUN was 15, creatinine 0.9. His most recent glucose was 85 fasting before breakfast this morning on the day of discharge. Potassium 4.6, sodium 138. The last WBC was 8300, hemoglobin 11.7. THERAPY PROVIDED: He was started on IV vancomycin and IV Keflex. The vancomycin was 1.5 twice a day and the Keflex was 1 g every 8 hours. Cefazolin was 1 g every 8 hours. His arm gradually improved. Still some swollen. He did sit down hard on the toilet and scraped his right arm which has some gauze dressing on it. HOSPITAL COURSE: He has improved; however, his dementia is significant and his short-term memory is poor. Unable to remember 3 objects after 5 minutes. The daughter is in agreement to taking home at this point and supervising his medication, living with her. She will give him his insulin shots. CONDITION ON DISCHARGE: Improved. DISCHARGE INSTRUCTIONS: [facility]. Changes on his medication regimen: We are going to change his Lantus insulin to 40 units at night only, started on Wednesday12/24/2018 because of we are giving him all his insulin that he needs today on the day of discharge, Wednesday. He is going to be going home with Bactrim double strength b.i.d. for 10 days, Keflex 500 mg 4 times a day for 8 days. He is to check his glucose twice a day in the morning and before dinner and report these numbers to the [facility] doctor. His home medications will be Aldactone 25 mg daily, Aricept 10 mg daily, Flomax 0.4 mg daily, Glucophage 1000 mg daily, Lasix 40 mg daily, Lipitor 80 mg daily, Lopressor 12.5 b.i.d., which is a new dose. He was on it once a day according to the home medication list. We switched that to b.i.d. Xarelto 1250 mg daily, Zestril 2.5 mg daily, Zoloft 100 mg daily. Stop smoking cigarettes. Methimazole 5 mg daily for his hyperthyroidism. Thiamine 100 mg daily; a new vitamin for 30 days. Accu-Chek twice a day . MTDD
== END 2018-12-23 17:20 | disposition home health service (06) ==
LOC: ER 15:52 → MEDSURG 18:15
PROVIDERS: ADMIT Internal Medicine; ATTEND Emergency Medicine
DX: L03.113 Cellulitis of right upper limb (principal); F03.90 Unspecified dementia, unspecified severity, without behavioral disturbance, psychotic disturbance, mood disturbance, and anxiety; E11.65 Type 2 diabetes mellitus with hyperglycemia; I25.2 Old myocardial infarction; F17.210 Nicotine dependence, cigarettes, uncomplicated; E05.90 Thyrotoxicosis, unspecified without thyrotoxic crisis or storm; I25.10 Atherosclerotic heart disease of native coronary artery without angina pectoris; E78.00 Pure hypercholesterolemia, unspecified; N40.0 Benign prostatic hyperplasia without lower urinary tract symptoms
CPT/HCPCS: 85025; 80053; J0690; J3370; 36416; 71045; 80048; 80202; 82947; 82948; 93005; 93010; 96365; 96366; 99223; 99233; 99239; 99285